=== PATIENT | female | born 1970 | race American Indian/Alaskan Native ===

== ENCOUNTER 2017-11-18 09:54 | Outpatient (CLI) | payer BC ==
--- NOTE | 2017-11-18 15:49 | Mammography Report ---
BILATERAL DIGITAL SCREENING MAMMOGRAM with CAD: 11/18/17 09:54:00 CLINICAL: Routine screening. COMPARISON:07/08/16 FINDINGS: The breasts are heterogeneously dense, which may obscure small masses. No mass, architectural distortion or suspicious calcifications. IMPRESSION: No mammographic evidence of malignancy. BI-RADS CATEGORY: 1 - - Negative RECOMMENDATION: Routine mammographic screening in one year. COMMENT: Patient follow-up letters are generated by our [employer] application.
== END 2017-11-18 09:55 | disposition home or self-care (01) ==
LOC: MAMMO 09:54
PROVIDERS: ATTEND Pediatrics
DX: Z12.31 Encounter for screening mammogram for malignant neoplasm of breast (principal)
CPT/HCPCS: 77067

== ENCOUNTER 2020-08-10 13:47 | Outpatient (CLI) | payer OTHER ==
--- NOTE | 2020-08-11 07:56 | Mammography Report ---
DIGITAL SCREENING MAMMOGRAM WITH CAD, 08/10/2020 INDICATION: Routine screening mammography. SCREENING MAMMO TECHNIQUE: Digital bilateral 2D mammography was obtained in the craniocaudal and mediolateral obliq ue projections. This examination was interpreted with the benefit of Computer-Aided Detection analysi s. COMPARISON: 04/02/2019 FINDINGS: Breast Density: The breasts are heterogeneously dense, which may obscure small masses. There is no evidence of dominant mass, suspicious calcifications or architectural distortion in eithe r breast. Probable cyst again seen in the right breast. IMPRESSION: Follow up recommendation: Routine yearly BI-RADS Category 2: Benign. A "normal" or negative report should not discourage follow up or biopsy of a clinically significant f inding. A written summary of these findings will be mailed to the patient. The patient will be entered into a mammography reporting system which will generate a reminder letter for the patient's next appointmen t at the appropriate interval. The [employer] recommends yearly mammograms starting at age 40 and continuing as l perri as a woman is in good health. Breast MRI is recommended for women with an approximate 20-25% or greater lifetime risk of breast cancer, including women with a strong family history of breast or ova carlitos cancer or who have been treated for Hodgkin's disease. Signer Name: Maycol Barry MD Signed: 08/11/2020 7:51 AM Workstation Name: [id number]
== END 2020-08-10 13:48 | disposition home or self-care (01) ==
LOC: MAMMO 13:47
PROVIDERS: ATTEND Nurse Practitioner Family
DX: Z12.31 Encounter for screening mammogram for malignant neoplasm of breast (principal)
CPT/HCPCS: 77067

== ENCOUNTER 2021-09-21 11:21 | Outpatient (CLI) | payer OTHER ==
--- NOTE | 2021-09-24 11:11 | Mammography Report ---
DIGITAL SCREENING MAMMOGRAM WITH CAD, 09/21/2021 CLINICAL INFORMATION / INDICATION: Routine screening mammography. TECHNIQUE: Digital bilateral 2D mammography was obtained in the craniocaudal and mediolateral obliqu e projections. This examination was interpreted with the benefit of Computer-Aided Detection analysis . COMPARISON: 08/10/2020, 04/02/2019 FINDINGS: Breast Density: The breasts are heterogeneously dense, which may obscure small masses. No dominant mass, suspicious calcifications, or architectural distortion in either breast. No interval change. IMPRESSION: No mammographic evidence of malignancy. Follow up recommendation: Routine yearly BI-RADS Category 1: Negative. A "normal" or negative report should not discourage follow up or biopsy of a clinically significant f inding. A written summary of these findings will be mailed to the patient. The patient will be entered into a mammography reporting system which will generate a reminder letter for the patient's next appointmen t at the appropriate interval. The [employer] recommends yearly mammograms starting at age 40 and continuing as l perri as a woman is in good health. Breast MRI is recommended for women with an approximate 20-25% or greater lifetime risk of breast cancer, including women with a strong family history of breast or ova carlitos cancer or who have been treated for Hodgkin's disease. Signer Name: Brii Burkett MD Signed: 09/24/2021 11:07 AM Workstation Name: [email or web address]
== END 2021-09-21 11:22 | disposition home or self-care (01) ==
LOC: MAMMO 11:21
PROVIDERS: ATTEND Nurse Practitioner Family
DX: Z12.31 Encounter for screening mammogram for malignant neoplasm of breast (principal)
CPT/HCPCS: 77067

== ENCOUNTER 2022-06-14 12:08 | Outpatient (CLI) | payer OTHER ==
[2022-06-14 13:39] LABS: Bacteria,Urine 1+ /HPF (Negative); Hyaline Casts,Urine 1 /LPF; Mucus,Urine FEW /HPF
[2022-06-14 13:46] LABS: Creatinine,Urine 170.9 mg/dL (0.1-20.0)
[2022-06-14 13:58] LABS: Alanine Aminotransferase 48 units/L (7-56); Albumin 4.6 g/dL (3.9-5); Blood Urea Nitrogen 14 mg/dL (7-17); Calcium 9.7 mg/dL (8.4-10.2); Hemolysis Index 4
[2022-06-14 14:05] LABS: BUN/Creatinine Ratio 20
[2022-06-14 14:21] LABS: Bilirubin,Urine Negative (Negative); Color,Urine Straw (Yellow)
[2022-06-14 14:22] LABS: Blood,Urine Small (Negative); Urobilinogen,Urine < 2.0 mg/dL (<2.0)
== END 2022-06-14 12:09 | disposition home or self-care (01) ==
LOC: LAB 12:08
PROVIDERS: ATTEND Internal Medicine Nephrology
DX: R31.9 Hematuria, unspecified (principal); R82.81 Pyuria; I10 Essential (primary) hypertension
CPT/HCPCS: 36415; 80053; 81001; 82550; 82570; 84100; 84156; 86038; 86160; 86706; 87086; 87517